=== PATIENT | female | born 1995 | race Hispanic/Latino ===

== ENCOUNTER 2025-08-27 22:33 | Emergency (ER) | payer OTHER, SELFPAY ==
[~2025-08-27] VITALS: Ht 162.6 cm; Wt 66.6 kg
[2025-08-28 00:54] LABS: BASO # 0.0 10^3/uL (0.0-0.2); BASO % 0.2 % (0.0-1.0); EOS # 0.0 10^3/uL (0.0-0.5); EOS % 0.1 % (0.0-3.0); LYMPH # 1.5 10^3/uL (1.5-5.0); LYMPH % 16.6 % (24.0-44.0); MONO # 0.4 10^3/uL (0.0-0.8); MONO % 4.5 % (2.0-8.0); NEUTROPHILS # 6.9 10^3/uL (1.5-8.5); NEUTROPHILS % 78.4 % (36.0-66.0); PLATELET COUNT, AUTOMATED 257 10^3/uL (150-450)
[2025-08-28 00:58] LABS: ALT/SGPT < 9 U/L (7.0-40); AST/SGOT 12 U/L (<34); CALCIUM LEVEL 9.2 MG/DL (8.5-10.1); CARBON DIOXIDE LEVEL 18 MMOL/L (20-31); CHLORIDE LEVEL 106 MMOL/L (98-107); CREATININE FOR GFR 0.73 MG/DL (0.55-1.30); GLOMERULAR FILTRATION RATE > 90.0 (>60); POTASSIUM SERUM 5.0 MMOL/L (3.5-5.1); SODIUM LEVEL 140 MMOL/L (136-145)
[2025-08-28 00:58] LABS: KETONE, URINE AUTO RFX 2+ mg/dL (NEGATIVE); MUCUS, URINE RFX SMALL (NEGATIVE); NITRITE, URINE AUTO RFX NEGATIVE (NEGATIVE); RBC, URINE AUTO RFX 0 /HPF (0-3); SQUAM EPITHELIAL CELL UR AURFX 31 /HPF (0-6); WBC, URINE AUTO RFX 8 /HPF (0-3)
[2025-08-28 01:01] LABS: HCG, SERUM QUALITATIVE NEGATIVE (NEGATIVE)
[2025-08-28 01:01] LABS: LEUKOCYTE ESTERASE UR AUTO RFX TRACE (NEGATIVE)
[2025-08-28] MEDS ORDERED: ISOVUE-370 76% 100 ML VIAL As Ordered ONE (06:25)
[2025-08-28] MEDS: NS (Normal Saline) 0.9% 1,000 ML IV ONE (06:49)
[2025-08-28] MEDS: ONDANSETRON 4MG 2ML VIAL IV ONE (06:49)
[2025-08-28] MEDS ORDERED: PHEN-372 PO (08:37)
[2025-08-28] MEDS ORDERED: NITR100C3 PO (08:37)
[2025-08-28] MEDS ORDERED: ONDA-282 PO (08:37)
[2025-08-28 08:43] VITALS: BP 100/57; TEMP 97.6; O2SAT 98
== END 2025-08-28 08:55 | disposition home or self-care (01) ==
LOC: M ED 22:33
DX: N39.0 Urinary tract infection, site not specified (principal); K76.0 Fatty (change of) liver, not elsewhere classified
CPT/HCPCS: 74177; 80048; 80076; 81001; 83690; 84703; 85025; 87086; 87486; 87581; 87633; 87798; 96361; 96374; 99284; J2405; Q9967